=== PATIENT | female | born 1985 | race Two or more races ===

== ENCOUNTER → 2022-03-14 | Outpatient (CLI) | payer BC ==
[2022-03-14 10:38] LABS: CHLORIDE 108 mEq/L (98-107)
[2022-03-14 10:48] LABS: HDL CHOLESTEROL 38 mg/dL (40-59); LDL CHOLESTEROL 114 mg/dL (5-100)
== END | disposition home or self-care (01) ==
LOC: LAB 09:15
PROVIDERS: ATTEND Family Medicine
DX: E78.5 Hyperlipidemia, unspecified (principal)
CPT/HCPCS: 36415; 80053; 80061